=== PATIENT | female | born 1970 | race African-American/Black ===

== ENCOUNTER → 2020-01-27 | Outpatient (CLI) | payer BC ==
--- NOTE | 2020-01-27 15:49 | RADIOLOGY REPORT (SQ) ---
EXAM DESCRIPTION: U/S THYROID/SFT TISS HD NECK IMAGES COMPLETED DATE/TIME: 01/27/2020 1:43 pm REASON FOR STUDY: E05.90 THYROTOXICOSIS, UNSP WITHOUT THYROTOXIC CRISIS OR STORM E05.90 THYROTOXICO SIS, UNSP WITHOUT THYROTOXIC CRISIS OR STO COMPARISON: None. TECHNIQUE: Dynamic and static torre-scale images acquired of the thyroid gland. Selected additional c olor/power Doppler images recorded. All images stored to PACS. LIMITATIONS: None. FINDINGS: RIGHT LOBE: Normal size. Heterogeneous echotexture. No cystic or solid masses. LEFT LOBE: Normal size. Heterogeneous echotexture. No cystic or solid masses. ISTHMUS: Normal size. Homogeneous echotexture. No cystic or solid masses. OTHER: No other significant finding. IMPRESSION: NORMAL THYROID ULTRASOUND. TECHNICAL DOCUMENTATION: JOB ID: [id number] 2010 [employer]- All Rights Reserved Reading location - IP/workstation name: [email or web address]
== END ==
LOC: RAD 12:56
PROVIDERS: ATTEND Family Medicine
DX: E05.90 Thyrotoxicosis, unspecified without thyrotoxic crisis or storm (principal)
CPT/HCPCS: 76536